=== PATIENT | female | born 1990 | race Caucasian/White ===

== ENCOUNTER 2019-03-29 18:04 | Emergency (ER) | payer OTHER ==
[2019-03-29 18:26] VITALS: BP 109/72
--- NOTE | 2019-03-29 19:03 | ED Physician Documentation ---
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 She is had an on and off itchy rash for the last year or so that was worse today. At some point a steroid cream was trialed which was somewhat effective.) Review of Systems Constitutional: reports: Reviewed and negative Cardiac: reports: Reviewed and negative Respiratory: reports: Reviewed and negative PD PAST MEDICAL HISTORY - Past Medical History Past Medical History: Yes Other Past Medical History: G6 PD deficiency. - Past Surgical History Past Surgical History: No - Present Medications Home Medications: Ambulatory Orders Medication Instructions Recorded Confirmed Doxepin [SINEquan] 10 mg PO TID PRN #30 capsule 03/29/19 Loratadine [Allergy Relief] 10 mg PO DAILY #90 tablet 03/29/19 - Allergies Allergies/Adverse Reactions: Allergies Allergy/AdvReac Type Severity Reaction Status Date / Time No Known Drug Allergies Allergy Verified 03/29/19 18:26 - Social History Does the pt smoke?: No Smoking Status: Never smoker Does the pt drink ETOH?: Yes Does the pt have substance abuse?: No - Immunizations Immunizations are current?: Yes PD ED PE NORMAL - Vitals Vital signs reviewed: Yes - General General: Alert and oriented X 3, No acute distress - Derm Derm: Other (She has mild urticaria mostly on the back and a little bit on the lower abdomen with positive dermatographia.) - Neuro Neuro: Alert and oriented X 3, Normal speech Results - Vitals Vitals: Vital Signs - 24 hr 03/29/19 18:23 Temperature 36.7 C Heart Rate 74 Respiratory 16 Rate Blood Pressure 109/72 O2 Saturation 98 Oxygen O2 Source Room air Departure - Departure Disposition: 01 Home, Self Care Clinical Impression: Idiopathic urticaria Condition: Good Record reviewed to determine appropriate education?: Yes Instructions: ED Urticaria Prescriptions: Doxepin [SINEquan] 10 mg PO TID PRN #30 capsule PRN Reason: Itching Loratadine [Allergy Relief] 10 mg PO DAILY #90 tablet Comments: Start with the loratadine, it has less side effects. If that is ineffective you can go over to the doxepin. 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 Return for new or worsening symptoms.
== END 2019-03-29 19:05 | disposition home or self-care (01) ==
LOC: ED 18:04
DX: L50.1 Idiopathic urticaria (principal); L50.3 Dermatographic urticaria
CPT/HCPCS: 99282; 99283

== ENCOUNTER 2021-06-07 08:00 | Outpatient (CLI) | payer OTHER | END 2021-06-07 23:59 | LOC: LAB.N 08:00 | PROVIDERS: ATTEND Nurse Practitioner | DX: B34.9 Viral infection, unspecified (principal); R07.0 Pain in throat; Z20.822 Contact with and (suspected) exposure to COVID-19 | CPT/HCPCS: 87070 ==